=== PATIENT | female | born 1990 | race Caucasian/White ===

== ENCOUNTER 2018-02-27 12:06 | Emergency (ER) | payer BC ==
[~2018-02-27] VITALS: Ht 165.1 cm; Wt 131.5 kg
[2018-02-27] MEDS ORDERED: KETOROLAC TROMETHAMINE 10 MG TAB PO ONE (12:15)
--- NOTE | 2018-02-27 12:39 | Diagnostic Imaging Report ---
Exam: Left ankle 2 views History: Fall, pain, swelling Comparison: None. Findings: No acute, displaced fracture or dislocation. The tibial plafond and talar dome are intact. The ankle mortise is maintained. Diffuse soft tissue swelling about the ankle. Impression: Diffuse soft tissue swelling of the left ankle without underlying acute osseous abnormality. Signed by: Dr. Murtaza Nunez M.D. on 02/27/2018 12:35 PM
[2018-02-27 14:02] VITALS: BP 112/76
== END 2018-02-27 14:03 | disposition home or self-care (01) ==
LOC: ER 12:06
DX: S93.402A Sprain of unspecified ligament of left ankle, initial encounter (principal); X50.1XXA Overexertion from prolonged static or awkward postures, initial encounter; Y92.008 Other place in unspecified non-institutional (private) residence as the place of occurrence of the external cause
CPT/HCPCS: 99283